=== PATIENT | male | born 1965 | race African-American/Black ===

== ENCOUNTER 2024-03-25 15:49 | Inpatient (IN) | payer BC ==
[~2024-03-25] VITALS: Ht 175.3 cm; Wt 73.6 kg
[2024-03-25 15:58] VITALS: BP_SYST 176; PULSE 89; RESP 16; TEMP 97.6; O2SAT 98
[2024-03-25] MEDS: NACL 0.9% 2,000 ML IV ONE (16:44)
[2024-03-25 16:49] LABS: INFLUENZA TYPE A Negative (NEGATIVE); INFLUENZA TYPE B NEGATIVE (NEGATIVE)
[2024-03-25] MEDS: INSULIN REGULAR, HUMAN 10 UNITS/0.1 ML, 3 ML VIAL IVP ONE ×2 (16:51→21:17)
[2024-03-25] MEDS: IBUPROFEN 400 MG TABLET PO ONE (16:51)
[2024-03-25] MEDS ORDERED: METO75TA PO (16:55)
[2024-03-25] MEDS ORDERED: AMLO10TA88 PO (16:55)
[2024-03-25] MEDS ORDERED: METF-381 PO (16:55)
[2024-03-25] MEDS ORDERED: LISI20TA30 PO (16:55)
[2024-03-25 17:03] LABS: BASOPHILS # (AUTO) 0.1 K/uL (0.0-0.2); BASOPHILS % (AUTO) 1.6 % (0.0-2.0); EOSINOPHILS # (AUTO) 0.1 K/uL (0.0-0.4); EOSINOPHILS % (AUTO) 2.3 % (0.0-4.0); HEMATOCRIT 36.1 % (36-54); HEMOGLOBIN 11.8 g/dL (14.0-18.0); LYMPHOCYTES # (AUTO) 1.1 K/uL (1.0-5.5); LYMPHOCYTES % (AUTO) 19.6 % (20.5-51.5); MEAN CORPUSCULAR HEMOGLOBIN 26 pg (27-31); MEAN CORPUSCULAR HGB CONC 33 % (32-36); MEAN CORPUSCULAR VOLUME 81 fL (79.0-98.0); MONOCYTES # (AUTO) 0.5 K/uL (0.0-1.0); MONOCYTES % (AUTO) 8.4 % (1.7-9.3); NEUTROPHILS # (AUTO) 3.9 K/uL (1.8-7.7); NEUTROPHILS % (AUTO) 68.1 % (40.0-70.0); PLATELET COUNT (AUTO) 287 K/uL (130-430); RED BLOOD CELL COUNT(AUTO) 4.47 MIL/uL (4.2-6.2); RED CELL DISTRIBUTION WIDTH 13.8 % (9.0-15.0); WHITE BLOOD COUNT (AUTO) 5.7 K/uL (4.8-10.8)
[2024-03-25 17:08] LABS: ALBUMIN 3.3 g/dL (3.4-4.8); BILIRUBIN,DIRECT 0.1 mg/dL (0.0-0.3); CREATININE 1.38 mg/dL (0.55-1.30); POTASSIUM 3.4 mmol/L (3.5-5.1); TOTAL BILIRUBIN 0.3 mg/dL (0.0-1.0); TOTAL PROTEIN, SERUM 7.2 g/dL (6.4-8.3)
[2024-03-25 18:16] LABS: BILIRUBIN,URINE NEGATIVE (NEGATIVE); CLARITY/URINE CLEAR (CLEAR); GLUCOSE,URINE 3+ (NEGATIVE); KETONES,URINE NEGATIVE (NEGATIVE); LEUKOCYTE ESTERASE ,URINE NEGATIVE (NEGATIVE); NITRITE, URINE NEGATIVE (NEGATIVE); PROTEIN URINE NEGATIVE (NEGATIVE); UROBILINOGEN,URINE 0.2 (0.2-1.0)
[2024-03-25 18:20] LABS: BLOOD, URINE TRACE (NEGATIVE)
[2024-03-25 18:21] LABS: COLOR,URINE STRAW (YELLOW)
[2024-03-25 18:51] LABS: BACTERIA,URINE FEW /HPF (None Seen); RBC,URINE 0-3 /HPF (0-3); WBC,URINE 0-3 /HPF (0-3)
[2024-03-25 18:52] LABS: MUCUS,URINE None Seen /LPF (None Seen); YEAST,URINE Moderate /HPF (None Seen)
[2024-03-25] MEDS: NACL 0.9% 1,000 ML IV ONE (21:08)
[2024-03-25] MEDS: metFORMIN HCL 500 MG TABLET PO ONE (21:14)
[2024-03-26] VITALS: BP_SYST 137; PULSE 78; RESP 18; TEMP 97.5; O2SAT 96
[2024-03-26 02:07] VITALS: BP_SYST 129; PULSE 74; RESP 20; TEMP 97.5; O2SAT 95
[2024-03-26] MEDS ORDERED: HYDROcodone/ACETAMIN 5-325 MG TAB (NORCO/ VICODIN) PO PRN (06:45)
[2024-03-26] MEDS ORDERED: NALOXONE HCL 0.4 MG/ML AMP (NARCAN) IVP PRN ×2 (06:45)
[2024-03-26] MEDS ORDERED: ONDANSETRON HCL 4 MG/2 ML VIAL IVP PRN (06:45)
[2024-03-26] MEDS ORDERED: ACETAMINOPHEN 325 MG TABLET PO PRN ×2 (06:45→07:00)
[2024-03-26] MEDS ORDERED: INSULIN REGULAR, HUMAN 100 UNITS/ML, 3 ML VIAL (humuLIN R) SUBCUT PRN (06:45)
[2024-03-26] MEDS ORDERED: LORazepam 2 MG/ML VIAL IVP PRN (06:45)
[2024-03-26] MEDS: INSULIN REGULAR, HUMAN 100 UNITS/ML, 3 ML VIAL (humuLIN R) SUBCUT PRN (07:11)
[2024-03-26 08:00] VITALS: BP_SYST 119; PULSE 72; RESP 18; TEMP 97.8; O2SAT 18
[2024-03-26] MEDS: metFORMIN HCL 500 MG TABLET PO SCH (09:17)
[2024-03-26] MEDS: METOPROLOL TARTRATE 25 MG TABLET PO SCH (09:18)
[2024-03-26] MEDS: lisinopriL 20 MG TABLET PO SCH (09:19)
[2024-03-26] MEDS: amLODIPine BESYLATE 10 MG TABLET PO SCH (09:20)
[2024-03-26 11:31] VITALS: BP_SYST 119; PULSE 72; RESP 18; TEMP 97.8; O2SAT 99
[2024-03-26 11:58] LABS: BASOPHILS % (AUTO) 0.8 % (0.0-2.0); EOSINOPHILS # (AUTO) 0.2 K/uL (0.0-0.4); EOSINOPHILS % (AUTO) 2.7 % (0.0-4.0); HEMATOCRIT 36.4 % (36-54); HEMOGLOBIN 11.8 g/dL (14.0-18.0); LYMPHOCYTES # (AUTO) 1.5 K/uL (1.0-5.5); LYMPHOCYTES % (AUTO) 23.5 % (20.5-51.5); MEAN CORPUSCULAR HEMOGLOBIN 26 pg (27-31); MEAN CORPUSCULAR HGB CONC 32 % (32-36); MEAN CORPUSCULAR VOLUME 81 fL (79.0-98.0); MONOCYTES # (AUTO) 0.4 K/uL (0.0-1.0); MONOCYTES % (AUTO) 6.1 % (1.7-9.3); NEUTROPHILS # (AUTO) 4.3 K/uL (1.8-7.7); NEUTROPHILS % (AUTO) 66.9 % (40.0-70.0); PLATELET COUNT (AUTO) 299 K/uL (130-430); RED CELL DISTRIBUTION WIDTH 13.9 % (9.0-15.0); WHITE BLOOD COUNT (AUTO) 6.4 K/uL (4.8-10.8)
[2024-03-26 12:06] LABS: CALCIUM 8.4 mg/dL (8.4-11.0); CREATININE 0.89 mg/dL (0.55-1.30); POTASSIUM 3.2 mmol/L (3.5-5.1)
[2024-03-26] MEDS: NORMAL SALINE 5 ML DISP.SYRIN IVF SCH (12:29)
[2024-03-26] MEDS: POTASSIUM CHLORIDE 20 MEQ TABLET.ER PO ONE (13:58)
[2024-03-26 16:30] VITALS: BP_SYST 165; PULSE 74; RESP 18; TEMP 98; O2SAT 99
[2024-03-26] MEDS: hydrALAZINE HCL 25 MG TABLET PO ONE (17:43)
[2024-03-26 20:02] VITALS: BP_SYST 107; PULSE 80; RESP 16; TEMP 99.3; O2SAT 100
[2024-03-27 00:05] VITALS: BP_SYST 124; PULSE 72; RESP 16; TEMP 97.6
[2024-03-27 01:45] VITALS: BP_SYST 124; PULSE 72
[2024-03-27 04:43] LABS: ALBUMIN 2.4 g/dL (3.4-4.8); BASOPHILS # (AUTO) 0.1 K/uL (0.0-0.2); BASOPHILS % (AUTO) 0.8 % (0.0-2.0); CALCIUM 8.2 mg/dL (8.4-11.0); CREATININE 0.85 mg/dL (0.55-1.30); EOSINOPHILS # (AUTO) 0.2 K/uL (0.0-0.4); EOSINOPHILS % (AUTO) 2.7 % (0.0-4.0); HEMATOCRIT 32.1 % (36-54); LYMPHOCYTES % (AUTO) 29.9 % (20.5-51.5); MEAN CORPUSCULAR HEMOGLOBIN 27 pg (27-31); MEAN CORPUSCULAR HGB CONC 34 % (32-36); MEAN CORPUSCULAR VOLUME 79 fL (79.0-98.0); MONOCYTES # (AUTO) 0.3 K/uL (0.0-1.0); MONOCYTES % (AUTO) 4.3 % (1.7-9.3); NEUTROPHILS # (AUTO) 4.2 K/uL (1.8-7.7); NEUTROPHILS % (AUTO) 62.3 % (40.0-70.0); PHOSPHORUS 2.3 mg/dL (2.7-4.5); PLATELET COUNT (AUTO) 297 K/uL (130-430); POTASSIUM 3.3 mmol/L (3.5-5.1); RED BLOOD CELL COUNT(AUTO) 4.06 MIL/uL (4.2-6.2); RED CELL DISTRIBUTION WIDTH 13.9 % (9.0-15.0); TOTAL BILIRUBIN 0.3 mg/dL (0.0-1.0); TOTAL PROTEIN, SERUM 5.7 g/dL (6.4-8.3); WHITE BLOOD COUNT (AUTO) 6.7 K/uL (4.8-10.8)
[2024-03-27] MEDS: hydrALAZINE HCL 10 MG TABLET PO SCH (06:00)
[2024-03-27 08:00] VITALS: BP_SYST 167; PULSE 79; RESP 18; TEMP 97.9; O2SAT 98
[2024-03-27 11:23] VITALS: BP_SYST 171; PULSE 99; RESP 18; TEMP 98.6; O2SAT 100
[2024-03-27] MEDS: CALCIUM GLUC 2 GM/100ML-NACL 100 ML IV ONE (12:22)
[2024-03-27] MEDS: K PHOS 15 MM in NS 250 ML IV ONE (14:38)
[2024-03-27 15:10] VITALS: BP_SYST 108; PULSE 74; RESP 18; TEMP 98.6; O2SAT 99
[2024-03-27 20:00] VITALS: BP_SYST 143; PULSE 79; RESP 20; TEMP 97.3; O2SAT 96
[2024-03-28 01:00] VITALS: BP_SYST 142; PULSE 83; RESP 20; TEMP 98.1; O2SAT 97
[2024-03-28 06:54] LABS: BASOPHILS # (AUTO) 0.1 K/uL (0.0-0.2); BASOPHILS % (AUTO) 0.9 % (0.0-2.0); EOSINOPHILS # (AUTO) 0.2 K/uL (0.0-0.4); EOSINOPHILS % (AUTO) 2.3 % (0.0-4.0); HEMATOCRIT 37.8 % (36-54); HEMOGLOBIN 12.4 g/dL (14.0-18.0); LYMPHOCYTES # (AUTO) 2.1 K/uL (1.0-5.5); LYMPHOCYTES % (AUTO) 30.1 % (20.5-51.5); MEAN CORPUSCULAR HEMOGLOBIN 26 pg (27-31); MEAN CORPUSCULAR HGB CONC 33 % (32-36); MEAN CORPUSCULAR VOLUME 81 fL (79.0-98.0); MONOCYTES # (AUTO) 0.4 K/uL (0.0-1.0); MONOCYTES % (AUTO) 5.3 % (1.7-9.3); NEUTROPHILS # (AUTO) 4.3 K/uL (1.8-7.7); NEUTROPHILS % (AUTO) 61.4 % (40.0-70.0); PLATELET COUNT (AUTO) 345 K/uL (130-430); RED CELL DISTRIBUTION WIDTH 14.1 % (9.0-15.0); WHITE BLOOD COUNT (AUTO) 7.1 K/uL (4.8-10.8)
[2024-03-28 07:22] LABS: CALCIUM 8.8 mg/dL (8.4-11.0); CREATININE 0.95 mg/dL (0.55-1.30); POTASSIUM 3.4 mmol/L (3.5-5.1)
[2024-03-28 08:52] VITALS: BP_SYST 132; PULSE 78; RESP 18; TEMP 97; O2SAT 99
[2024-03-28] MEDS ORDERED: HYDR-2923 PO (10:21)
[2024-03-28] MEDS: HYDROcodone/ACETAMIN 10-325 MG TAB PO PRN (12:01)
[2024-03-28 12:08] VITALS: BP_SYST 132; PULSE 78; RESP 18; TEMP 97; O2SAT 99
[2024-03-28 12:46] VITALS: BP_SYST 130; PULSE 80; RESP 16; TEMP 97.6; O2SAT 100
== END 2024-03-28 14:30 | disposition home or self-care (01) | DRG 384 ==
LOC: SED 15:49 → STU 21:00 → SMU 03-27 16:59
PROVIDERS: ADMIT Preventive Medicine Preventive Medicine/Occupational Environmental Medicine; ATTEND Preventive Medicine Preventive Medicine/Occupational Environmental Medicine
PROC: 4A00X4Z Measurement of Central Nervous Electrical Activity, External Approach (ICD-10-PCS; principal; 2024-03-27)
DX: S50.02XA Contusion of left elbow, initial encounter (principal); N17.9 Acute kidney failure, unspecified; E43 Unspecified severe protein-calorie malnutrition; E88.09 Other disorders of plasma-protein metabolism, not elsewhere classified; E83.39 Other disorders of phosphorus metabolism; E87.1 Hypo-osmolality and hyponatremia; E11.65 Type 2 diabetes mellitus with hyperglycemia; D64.9 Anemia, unspecified; Z20.822 Contact with and (suspected) exposure to COVID-19; E86.0 Dehydration; E83.52 Hypercalcemia; E87.6 Hypokalemia; I10 Essential (primary) hypertension; I25.10 Atherosclerotic heart disease of native coronary artery without angina pectoris; W18.39XA Other fall on same level, initial encounter; Z79.899 Other long term (current) drug therapy; Z88.8 Allergy status to other drugs, medicaments and biological substances; Y93.89 Activity, other specified; Y92.89 Other specified places as the place of occurrence of the external cause; Y99.8 Other external cause status; Z68.24 Body mass index [BMI] 24.0-24.9, adult
CPT/HCPCS: 36415; 70450-TC; 70551; 80048; 80053; 80076; 81000; 81001; 81015; 82948; 83037; 83735; 84100; 85025; 93005; 93306; 93880; 95816; 97116-GP; 99285; G0378; J1815; J7050